=== PATIENT | male | born 1955 | race Caucasian/White ===

== ENCOUNTER 2019-08-07 09:24 | Emergency (ER) | payer OTHER, BC, SELFPAY ==
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
[2019-08-07 09:25] VITALS: BP 149/72; PULSE 66; RESP 18; TEMP 36.6; O2SAT 100
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
[2019-08-07 11:39] VITALS: BP 141/78; PULSE 78; RESP 18; O2SAT 99
== END 2019-08-07 11:33 | disposition home or self-care (01) ==
PROVIDERS: Emergency Provider Emergency Medicine
DX: S16.1XXA Strain of muscle, fascia and tendon at neck level, initial encounter (principal); I10 Essential (primary) hypertension; Z87.891 Personal history of nicotine dependence; M47.812 Spondylosis without myelopathy or radiculopathy, cervical region; V64.5XXA Driver of heavy transport vehicle injured in collision with heavy transport vehicle or bus in traffic accident, initial encounter
CPT/HCPCS: 72125; 99284